=== PATIENT | female | born 1955 | race Caucasian/White ===

== ENCOUNTER 2016-10-02 13:23 | Emergency (ER) | payer OTHER ==
--- NOTE | 2016-10-02 14:12 | EDM.PDOC ---
ED HPI GENERAL MEDICAL PROBLEM - General Chief Complaint: ENT Problem Stated Complaint: NOSEBLEED Time Seen by Provider: 10/02/16 14:06 Source of Information: Reports: Patient, RN Notes Reviewed History Limitations: Reports: No Limitations - History of Present Illness INITIAL COMMENTS - FREE TEXT/NARRATIVE: 61-year-old female presents emergency department day with nose bleed thought of the left nares, she has had nosebleeds in the past last one was 2 days prior was able to get the bleeding controlled by herself this one has been worse she' s been unable to get the bleeding under control denies any lightheadedness denies taking any blood thinners - Related Data Allergies Allergy/AdvReac Type Severity Reaction Status Date / Time No Known Allergies Allergy Verified 10/02/16 13:47 Home Meds: Home Meds Venlafaxine [Effexor XR 24 Hr] 150 mg PO DAILY 09/15/13 [History] Cholecalciferol (Vitamin D3) [Vitamin D3] 3,000 unit PO DAILY 03/22/15 [History] Multivitamins,Therapeutic [Thera] 1 tab PO DAILY 03/22/15 [History] Calcium Carbonate [Calcium] 2,000 mg PO DAILY 10/02/16 [History] Cyanocobalamin (Vitamin B-12) [Vitamin B-12] 1 tab PO DAILY 10/02/16 [History] Hydrochlorothiazide [Hydrochlorothiazide] 1 tab PO DAILY 10/02/16 [History] Quinapril [Accupril] 1 tab PO DAILY 10/02/16 [History] Past Medical History HEENT History: Reports: Epistaxis, Sinusitis 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: Reports: Hypertension 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: Musculoskeletal History: Reports: Fracture Other Musculoskeletal History: both ankles Psychiatric History: Reports: Mood Swings Endocrine/Metabolic History: Reports: Obesity/BMI 30+ - Infectious Disease History Infectious Disease History: Reports: Chicken Pox, Measles, Mumps - Past Surgical History GI Surgical History: Reports: Bariatric Procedure Female Surgical History: Reports: Breast Biopsy, Section Musculoskeletal Surgical History: Reports: Other (See Below) Other Musculoskeletal Surgeries/Procedures:: ankle repair bilateral Social & Family History - Tobacco Use Smoking Status *Q: Never Smoker Used Tobacco, but Quit: No Second Hand Smoke Exposure: No - Alcohol Use Days Per Week of Alcohol Use: 0 - Recreational Drug Use Recreational Drug Use: No ED ROS ENT - Review of Systems Review Of Systems: See Below HEENT: Reports: Nosebleed Respiratory: Reports: No Symptoms Cardiovascular: Reports: No Symptoms GI/Abdominal: Reports: No Symptoms ED EXAM, ENT - Physical Exam Exam: See Below Exam Limited By: No Limitations General Appearance: Alert, WD/WN, No Apparent Distress Nose: Nasal Discharge, Active Bleeding, Dried Blood Mouth/Throat: Normal Gums, Normal Lips, Other (Bright red blood posterior pharynx) ED ENT PROCEDURES - Epistaxis Procedure Indication: Epistaxis Recent anticoagulants/antiplatlets: No Uncontrolled HTN: No Recent septal/nasal surgery: No Site of bleeding: Left Nare Clearing of clots: Patient Blew Nose Ice pack to area: No Anterior Packing: Inflatable Nasal Tampon Local Anesthetic Volume: 3cc Complications: No Course - Vital Signs Last Recorded V/S: Last Vital Signs Temp 97.3 F 10/02/16 13:47 Pulse 105 H 10/02/16 13:47 Resp 14 10/02/16 13:47 BP 175/107 H 10/02/16 13:47 Pulse Ox 95 10/02/16 13:47 Departure - Departure Time of Disposition: 15:32 Disposition: Home, Self-Care 01 Condition: Good Clinical Impression: Epistaxis - Discharge Information Forms: ED Department Discharge Additional Instructions: Please followup with your primary care provider in 2-3 days for reevaluation, please call return to the emergency department with worsening of symptoms. - Assessment/Plan Plan: Assessment Acuity = acute Site and laterality = epistaxis left naris Etiology = unclear etiology Manifestations = none Location of injury = Home Lab values = none Plan Follow-up with primary care 2-3 days for reevaluation, Rhino Rocket placed Patient was in agreement with the plan all questions were answered, they were instructed to return to the emergency department or call for worsening symptoms. This note was dictated using [employer] voice recognition software please call with any questions.
[2016-10-02 15:39] VITALS: BP 172/114
== END 2016-10-02 15:45 | disposition home or self-care (01) ==
LOC: JP.ED 13:23
DX: R04.0 Epistaxis (principal); Z79.899 Other long term (current) drug therapy; I10 Essential (primary) hypertension; F39 Unspecified mood [affective] disorder; E66.9 Obesity, unspecified
CPT/HCPCS: 30903; 99283-25

== ENCOUNTER 2016-10-02 17:26 | Emergency (ER) | payer OTHER ==
[2016-10-02 17:45] VITALS: BP 146/120
[2016-10-02] MEDS ORDERED: Oxymetazoline 0.05% Nasal Spray 15 ML Bottle NAS ONE (18:35)
--- NOTE | 2016-10-02 19:16 | EDM.PDOC ---
ED HPI GENERAL MEDICAL PROBLEM - General Chief Complaint: ENT Problem Stated Complaint: NOSE BLEED Time Seen by Provider: 10/02/16 18:26 Source of Information: Reports: Patient History Limitations: Reports: No Limitations - History of Present Illness INITIAL COMMENTS - FREE TEXT/NARRATIVE: This patient was seen earlier today for an anterior epistaxes. Dr. walshr placed a 5 similar Rhino Rocket which seemed to stop the bleeding however the patient went home and the tampon came out. She continues to bleed. Dr. walshr said he put about 3 mL of air into the Rhino Rocket and that's all she would tolerate. - Related Data Allergies Allergy/AdvReac Type Severity Reaction Status Date / Time No Known Allergies Allergy Verified 10/02/16 13:47 Home Meds: Home Meds Venlafaxine [Effexor XR 24 Hr] 150 mg PO DAILY 09/15/13 [History] Cholecalciferol (Vitamin D3) [Vitamin D3] 3,000 unit PO DAILY 03/22/15 [History] Multivitamins,Therapeutic [Thera] 1 tab PO DAILY 03/22/15 [History] Calcium Carbonate [Calcium] 2,000 mg PO DAILY 10/02/16 [History] Cyanocobalamin (Vitamin B-12) [Vitamin B-12] 1 tab PO DAILY 10/02/16 [History] Hydrochlorothiazide [Hydrochlorothiazide] 1 tab PO DAILY 10/02/16 [History] Quinapril [Accupril] 1 tab PO DAILY 10/02/16 [History] Past Medical History HEENT History: Reports: Epistaxis, Sinusitis 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: Reports: 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: Musculoskeletal History: Reports: Fracture Other Musculoskeletal History: both ankles Psychiatric History: Reports: Mood Swings Endocrine/Metabolic History: Reports: Obesity/BMI 30+ - Infectious Disease History Infectious Disease History: Reports: Chicken Pox, Measles, Mumps - Past Surgical History GI Surgical History: Reports: Bariatric Procedure Female Surgical History: Reports: Breast Biopsy, Section Musculoskeletal Surgical History: Reports: Other (See Below) Other Musculoskeletal Surgeries/Procedures:: ankle repair bilateral Social & Family History - Tobacco Use Smoking Status *Q: Never Smoker Used Tobacco, but Quit: No Second Hand Smoke Exposure: No - Alcohol Use Days Per Week of Alcohol Use: 0 - Recreational Drug Use Recreational Drug Use: No ED ROS ENT - Review of Systems Review Of Systems: ROS reveals no pertinent complaints other than HPI. ED EXAM, ENT - Physical Exam Exam: See Below Exam Limited By: No Limitations General Appearance: Alert, WD/WN, Mild Distress Nose: Active Bleeding (She has active bleeding from the left nares. 8 exam indicate is probably from the septum. See under hospital course), Other Course - Vital Signs Last Recorded V/S: Last Vital Signs Temp 97.2 C H 10/02/16 17:40 Pulse 126 H 10/02/16 17:40 Resp 16 10/02/16 17:40 BP 146/120 H 10/02/16 17:40 Pulse Ox 95 10/02/16 17:40 - Orders/Labs/Meds Meds: Medications Discontinued Medications Generic Name Dose Route Start Last Admin Trade Name Juan Pablo PRN Reason Stop Dose Admin Oxymetazoline HCl 1 ml 10/02/16 18:35 Afrin Original 0.05% Nasal Queen EVE 10/02/16 18:36 ONETIME ONE - Re-Assessments/Exams Free Text/Narrative Re-Assessment/Exam: 10/02/16 19:13 Procedure: Nasal packing, the nares were then cleared by her blowing her nose a briskly and the nose was then examined no definite bleeding points were noted however it's blood seems becoming diffusely from the the left septum. She blew her nose again and Afrin spray was used 2 sprays per each nostril and than the nose clip was placed on for several minutes. When that she was reexamined she was says was still bleeding had are clear her nose again and I was able to determine definitely that it is not a posterior bleed. Therefore I inserted a 5 cm Rhino Rocket appliance inserted to about 7 or 8 mL of air and then secured the appliance. That seemed to stop the bleeding looks like it's going to stay in Departure - Departure Time of Disposition: 19:14 Disposition: Home, Self-Care 01 Condition: Fair Clinical Impression: Acute anterior epistaxis - Discharge Information Forms: ED Department Discharge Additional Instructions: Keep the Rhino Rocket in place. If it seems like it's coming out you can use of syringe to deflated pushed a little bit more than reinflate it. He should inflated until the point where it starts to cause pain. This should be left in for 2 days and then you should see your doctor about getting it removed. You should be reexamined when it is removed. Return to ER at any time for any problems
== END 2016-10-02 19:28 | disposition home or self-care (01) ==
LOC: JP.ED 17:26
DX: R04.0 Epistaxis (principal); I10 Essential (primary) hypertension; E66.9 Obesity, unspecified; Z68.35 Body mass index [BMI] 35.0-35.9, adult; Z79.899 Other long term (current) drug therapy; Z98.890 Other specified postprocedural states; F39 Unspecified mood [affective] disorder
CPT/HCPCS: 30903; 99283; A9270

== ENCOUNTER 2017-05-02 05:28 | Inpatient (IN) | payer OTHER ==
[2017-05-02] MEDS ORDERED: Gabapentin 300 MG Cap PO ONE (05:30)
[2017-05-02] MEDS ORDERED: Acetaminophen 500 MG Tab PO ONE (05:30)
[2017-05-02] MEDS ORDERED: Scopolamine 1.5 MG Transdermal Patch TOP ONE (05:30)
[2017-05-02] MEDS ORDERED: Dextrose 5%-Lactated Ringers 1,000 ML IV SCH (06:30)
[2017-05-02] MEDS ORDERED: Isosulfan Blue 5 ML SDV ONE (06:51)
[2017-05-02] MEDS ORDERED: fentaNYL 250 MCG/5 ML SDV ONE ×2 (07:08→07:46)
[2017-05-02] MEDS ORDERED: HYDROmorphone/Normal Saline 15 MG/30 ML PCA IV PRN (07:08)
[2017-05-02] MEDS ORDERED: Naloxone 0.4 MG/ML SDV IVPUSH PRN (07:08)
[2017-05-02] MEDS ORDERED: Succinylcholine/Normal Saline 200 MG/10 ML Syringe ONE (07:11)
[2017-05-02] MEDS ORDERED: Lactated Ringers 1,000 ML ONE ×2 (07:11→08:29)
[2017-05-02] MEDS ORDERED: Neostigmine Methylsulfate 1 MG/ML 5 ML Syringe ONE (07:11)
[2017-05-02] MEDS ORDERED: Ondansetron 4 MG/2 ML SDV ONE (07:11)
[2017-05-02] MEDS ORDERED: Dexamethasone 4 MG/ML SDV ONE (07:11)
[2017-05-02] MEDS ORDERED: Propofol 200 MG/20 ML SDV ONE (07:11)
[2017-05-02] MEDS ORDERED: Rocuronium 50 MG/5 ML Vial ONE ×2 (07:11→07:45)
[2017-05-02] MEDS ORDERED: Naloxone 0.4 MG/ML SDV IV PRN (07:15)
[2017-05-02] MEDS ORDERED: cefOXitin 2 GM in Sodium Chloride 0.9% 50 ML IV ONE (07:15)
[2017-05-02] MEDS ORDERED: Lidocaine 2% 100 MG/5 ML Syringe IVPUSH ONE (07:45)
[2017-05-02] MEDS ORDERED: Ropivacaine 58 ML, Dexamethasone 8 MG, EPINEPHrine 0.4 MG, Sodium Chloride 0.9% 19.6 ML NERVRT SCH ×4 (07:45)
[2017-05-02] MEDS ORDERED: Ketamine 500 MG/5 ML MDV IV SCH (07:45)
[2017-05-02] MEDS ORDERED: Meropenem 500 MG SDV ONE (08:09)
[2017-05-02] MEDS ORDERED: Ondansetron 4 MG/2 ML SDV IVPUSH PRN (12:44)
[2017-05-02] MEDS: VERIFY SCOPOLAMINE PATCH TOP SCH (13:46)
[2017-05-02] MEDS: Dextrose 5%-Lactated Ringers 1,000 ML IV SCH (14:17)
[2017-05-02] MEDS: Lidocaine 0.4%/D5W 2 GM/500 ML BAG IV SCH (14:17)
[2017-05-02] MEDS: Pantoprazole 40 MG Vial IV SCH (14:34)
[2017-05-02] MEDS: cefOXitin 2 GM in Sodium Chloride 0.9% 50 ML IV SCH ×2 (14:34→19:57)
[2017-05-02] MEDS: Hydrochlorothiazide 12.5 MG Cap PO SCH (19:59)
[2017-05-02] MEDS: Venlafaxine 75 MG Tab PO SCH (19:59)
[2017-05-03] MEDS: Lidocaine 0.4%/D5W 2 GM/500 ML BAG IV SCH (00:17)
[2017-05-03] MEDS: cefOXitin 2 GM in Sodium Chloride 0.9% 50 ML IV SCH ×2 (01:53→08:16)
[2017-05-03] MEDS: Dextrose 5%-Lactated Ringers 1,000 ML IV SCH (04:07)
[2017-05-03] MEDS ORDERED: Dextrose 5%-Lactated Ringers 1,000 ML IV SCH ×2 (07:33→10:30)
[2017-05-03] MEDS: Venlafaxine 75 MG Tab PO SCH ×2 (08:20→20:32)
[2017-05-03] MEDS: Potassium Chloride 10% 20 MEQ/15 ML Soln 15 ML UD Cup PO SCH (08:20)
[2017-05-03] MEDS: Hydrochlorothiazide 12.5 MG Cap PO SCH ×2 (08:21→20:31)
[2017-05-03] MEDS: Bisacodyl 5 MG Tab PO SCH ×2 (08:22→20:30)
[2017-05-03] MEDS: VERIFY SCOPOLAMINE PATCH TOP SCH (08:23)
[2017-05-03] MEDS ORDERED: Iron Sucrose Complex 500 MG in Sodium Chloride 0.9% 250 ML IV ONE (10:00)
[2017-05-03] MEDS: HYDROmorphone 2 MG Tab PO PRN ×4 (10:57→22:55)
[2017-05-03] MEDS: Pantoprazole 40 MG Vial IV SCH (14:38)
--- NOTE | 2017-05-03 14:41 | PCM.SURGPN ---
- General Info Date of Service: 05/03/17 Date of Surgery/Procedure: 05/02/17 POD#: 1 Post-Op Diagnosis: Stable. S/p SILVERIO with oophorectomy, salpingectomy and sentinal lymph node excision. Admission Diagnosis/Problem: Vaginal bleeding Functional Status: Reports: Pain Controlled Pain Score: 3 - Review of Systems General: Reports: No Symptoms HEENT: Reports: No Symptoms Pulmonary: Reports: No Symptoms Cardiovascular: Reports: No Symptoms Gastrointestinal: Reports: Abdominal Pain (No flatus or BM's ) Genitourinary: Reports: No Symptoms Musculoskeletal: Reports: No Symptoms Skin: Reports: No Symptoms Neurological: Reports: No Symptoms Psychiatric: Reports: No Symptoms - Patient Data Vitals - Most Recent: Last Vital Signs Temp 36.9 C 05/03/17 10:46 Pulse 93 05/03/17 10:46 Resp 18 05/03/17 10:46 BP 118/85 05/03/17 10:46 Pulse Ox 95 05/03/17 10:46 Weight - Most Recent: 110.042 kg I&O - Last 24 Hours: Intake & Output 05/02/17 05/03/17 05/03/17 22:59 06:59 14:59 Intake Total 1238 2645 1749 Output Total 522 1152 1005 Balance 716 1493 744 Med Orders - Current: Current Medications Bisacodyl (Dulcolax) 20 mg PO BID [facility] Last Admin: 05/03/17 08:22 Dose: 20 mg Hydrochlorothiazide (Hydrochlorothiazide) 12.5 mg PO BID [facility] Last Admin: 05/03/17 08:21 Dose: 12.5 mg Hydromorphone HCl (Dilaudid) 2 - 4 mg PO Q4H PRN PRN Reason: Pain Last Admin: 05/03/17 10:57 Dose: 4 mg Iron Sucrose 500 mg/ Sodium (Chloride) 275 mls @ 68 mls/hr IV ONETIME ONE Stop: 05/04/17 14:02 Dextrose/Lactated Ringer's (Dextrose 5%-Lactated Ringers) 1,000 mls @ 0 mls/hr IV ASDIRECTED [facility] PRN Reason: KVO Miscellaneous Information (Remove Patch) 1 ea TRDERM ONETIME ONE Stop: 05/04/17 09:01 Naloxone HCl (Narcan) 0.1 mg IV ASDIRECTED PRN PRN Reason: decreased respiratory rate Ondansetron HCl (Zofran) 4 mg IVPUSH Q4H PRN PRN Reason: Nausea Pantoprazole Sodium (Protonix Iv) 40 mg IV Q24H [facility] Last Admin: 05/02/17 14:34 Dose: 40 mg Potassium Chloride (Potassium Chloride Solution) 20 meq PO DAILY@0800 [facility] Last Admin: 05/03/17 08:20 Dose: 20 meq Quinapril HCl (Accupril) 10 mg PO DAILY [facility] Last Admin: 05/03/17 08:22 Dose: 10 mg Senna/Docusate Sodium (Senna Plus) 2 tab PO DAILY [facility] Last Admin: 05/03/17 08:22 Dose: 2 tab Venlafaxine HCl (Effexor) 75 mg PO BID [facility] Last Admin: 05/03/17 08:20 Dose: 75 mg Discontinued Medications Acetaminophen (Tylenol Extra Strength) 1,000 mg PO ONETIME ONE Stop: 05/02/17 05:31 Last Admin: 05/02/17 05:58 Dose: 1,000 mg Ropivacaine 58 ml/Dexamethasone 8 mg/Epinephrine HCl 0.4 mg/ Sodium Chloride 19.6 ml 0 ml NERVRT ASDIRECTED [facility] Last Admin: 05/02/17 08:29 Dose: 80 syringe Dexamethasone (Dexamethasone) Confirm Administered Dose 4 mg .ROUTE .STK-MED ONE Stop: 05/02/17 07:12 Fentanyl (Sublimaze) Confirm Administered Dose 250 mcg .ROUTE .STK-MED ONE Stop: 05/02/17 07:09 Fentanyl (Sublimaze) Confirm Administered Dose 250 mcg .ROUTE .STK-MED ONE Stop: 05/02/17 07:47 Gabapentin (Neurontin) 300 mg PO ONETIME ONE Stop: 05/02/17 05:31 Last Admin: 05/02/17 05:58 Dose: 300 mg Glycopyrrolate () Confirm Administered Dose 1 mg .ROUTE .STK-MED ONE Stop: 05/02/17 07:12 Hydromorphone HCl (Dilaudid Bag Patcher 15 Mg In Ns 30 Ml) 0 mg IV ASDIRECTED PRN; Protocol PRN Reason: Pain Last Admin: 05/02/17 10:26 Dose: 0.3 mg Lidocaine HCl/Dextrose (Lidocaine 2 Gm/D5w 500 Ml) 2 gm in 500 mls @ 30 mls/hr IV .[id number] [facility] PRN Reason: 2 MG/MIN Stop: 05/03/17 11:00 Last Admin: 05/03/17 00:17 Dose: 2 mg/min, 30 mls/hr Ketamine HCl 100 mg/ Sodium (Chloride) 100 mls @ 20.7 mls/hr IV ASDIRECTED [facility] PRN Reason: 5 MCG/KG/MIN Dextrose/Lactated Ringer's (Dextrose 5%-Lactated Ringers) 1,000 mls @ 100 mls/ hr IV ASDIRECTED [facility] Last Admin: 05/02/17 06:01 Dose: 100 mls/hr Cefoxitin Sodium 2 gm/ Sodium (Chloride) 50 mls @ 100 mls/hr IV ONETIME ONE Stop: 05/02/17 07:44 Last Admin: 05/02/17 07:17 Dose: 100 mls/hr Lactated Ringer's (Ringers, Lactated) Confirm Administered Dose 1,000 mls @ as directed .ROUTE .ST-MED ONE Stop: 05/02/17 07:12 Lactated Ringer's (Ringers, Lactated) Confirm Administered Dose 1,000 mls @ as directed .ROUTE .STK-MED ONE Stop: 05/02/17 08:30 Dextrose/Lactated Ringer's (Dextrose 5%-Lactated Ringers) 1,000 mls @ 175 mls/ hr IV ASDIRECTED [facility] Last Admin: 05/03/17 04:07 Dose: 175 mls/hr Cefoxitin Sodium 2 gm/ Sodium (Chloride) 50 mls @ 100 mls/hr IV Q6H [facility] Stop: 05/03/17 08:29 Last Admin: 05/03/17 08:16 Dose: 100 mls/hr Dextrose/Lactated Ringer's (Dextrose 5%-Lactated Ringers) 1,000 mls @ 100 mls/ hr IV ASDIRECTED [facility] Iron Sucrose 500 mg/ Sodium (Chloride) 275 mls @ 68 mls/hr IV ONETIME ONE Stop: 05/03/17 14:02 Last Admin: 05/03/17 10:48 Dose: 68 mls/hr Isosulfan Blue (Lymphazurin 1%) Confirm Administered Dose 5 ml .ROUTE .STK-MED ONE Stop: 05/02/17 06:52 Last Admin: 05/02/17 08:24 Dose: 5 ml Ketamine HCl (Ketalar) 35 mg IV ASDIRECTED [facility] Lidocaine HCl (Xylocaine 2%) 130 mg IVPUSH ONETIME ONE Stop: 05/02/17 07:46 Last Admin: 05/02/17 13:46 Dose: Not Given Meropenem (Merrem) Confirm Administered Dose 500 mg .ROUTE .STK-MED ONE Stop: 05/02/17 08:10 Last Admin: 05/02/17 08:24 Dose: 500 mg Neostigmine Methylsulfate (Neostigmine) Confirm Administered Dose 5 mg .ROUTE .STK-MED ONE Stop: 05/02/17 07:12 Verify Scopolamine (Patch) 0 each TOP DAILY [facility] Stop: 05/03/17 09:01 Last Admin: 05/03/17 08:23 Dose: Not Given Ondansetron HCl (Zofran) Confirm Administered Dose 4 mg .ROUTE .STK-MED ONE Stop: 05/02/17 07:12 Propofol (Diprivan 20 Ml) Confirm Administered Dose 200 mg .ROUTE .STK-MED ONE Stop: 05/02/17 07:12 Rocuronium [place] (Zemuron) Confirm Administered Dose 50 mg .ROUTE .STK-MED ONE Stop: 05/02/17 07:12 Rocuronium [place] (Zemuron) Confirm Administered Dose 50 mg .ROUTE .STK-MED ONE Stop: 05/02/17 07:46 Scopolamine (Transderm-Scop) 1.5 mg TOP ONETIME ONE Stop: 05/02/17 05:31 Last Admin: 05/02/17 05:58 Dose: 1.5 mg Succinylcholine Chloride (Succinylcholine In Ns Pf) Confirm Administered Dose 200 mg .ROUTE .STK-MED ONE Stop: 05/02/17 07:12 - Exam Wound/Incisions: Healing Well General: Alert, Oriented Lungs: Clear to Auscultation, Normal Respiratory Effort Cardiovascular: Regular Rate, Regular Rhythm GI/Abdominal Exam: Normal Bowel Sounds, Soft, No Organomegaly, No Distention, No Abnormal Bruit, No Mass, Pelvis Stable, Tender Neurological: No New Focal Deficit Psy/Mental Status: Alert, Normal Affect, Normal Mood - Problem List Review Problem List Initiated/Reviewed/Updated: Yes - My Orders Last 24 Hours: Active Orders 24 hr Category Date Time Status Communication Order [RC] ROUTINE Care 05/03/17 07:38 Active May Shower [RC] ASDIRECTED Care 05/03/17 07:38 Active Full Liquid Diet [DIET] Diet 05/03/17 Breakfast Ordered Regular Diet [DIET] Diet 05/03/17 Lunch Active Bisacodyl [Dulcolax] Med 05/03/17 09:00 Active 20 mg PO BID Dextrose 5%-Lactated Ringers 1,000 ml Med 05/03/17 10:30 Active IV ASDIRECTED Docusate Sodium/Sennosides [Senna Plus] Med 05/03/17 09:00 Active 2 tab PO DAILY HYDROmorphone [Dilaudid] Med 05/03/17 10:26 Active 2 - 4 mg PO Q4H PRN Hydrochlorothiazide Med 05/02/17 21:00 Active 12.5 mg PO BID Iron Sucrose Complex [Venofer] 500 mg Med 05/04/17 10:00 Active Sodium Chloride 0.9% [Normal Saline] 250 ml IV ONETIME Pantoprazole [ProTONIX IV] Med 05/02/17 14:00 Active 40 mg IV Q24H Potassium Chloride [Potassium Chloride Solution] Med 05/03/17 08:00 Active 20 meq PO DAILY@0800 Quinapril [Accupril] Med 05/03/17 09:00 Active 10 mg PO DAILY Remove Patch Med 05/04/17 09:00 Once 1 ea TRDERM ONETIME ONE Venlafaxine [Effexor] Med 05/02/17 21:00 Active 75 mg PO BID Medication Orders Bisacodyl (Dulcolax) 20 mg PO BID [facility] Last Admin: 05/03/17 08:22 Dose: 20 mg Hydrochlorothiazide (Hydrochlorothiazide) 12.5 mg PO BID [facility] Last Admin: 05/03/17 08:21 Dose: 12.5 mg Admin: 05/02/17 19:59 Dose: 12.5 mg Hydromorphone HCl (Dilaudid) 2 - 4 mg PO Q4H PRN PRN Reason: Pain Last Admin: 05/03/17 10:57 Dose: 4 mg Iron Sucrose 500 mg/ Sodium (Chloride) 275 mls @ 68 mls/hr IV ONETIME ONE Stop: 05/04/17 14:02 Dextrose/Lactated Ringer's (Dextrose 5%-Lactated Ringers) 1,000 mls @ 0 mls/hr IV ASDIRECTED [facility] PRN Reason: KVO Miscellaneous Information (Remove Patch) 1 ea [facility] ONETIME ONE Stop: 05/04/17 09:01 Naloxone HCl (Narcan) 0.1 mg IV ASDIRECTED PRN PRN Reason: decreased respiratory rate Ondansetron HCl (Zofran) 4 mg IVPUSH Q4H PRN PRN Reason: Nausea Pantoprazole Sodium (Protonix Iv) 40 mg IV Q24H [facility] Last Admin: 05/02/17 14:34 Dose: 40 mg Potassium Chloride (Potassium Chloride Solution) 20 meq PO DAILY@0800 [facility] Last Admin: 05/03/17 08:20 Dose: 20 meq Quinapril HCl (Accupril) 10 mg PO DAILY [facility] Last Admin: 05/03/17 08:22 Dose: 10 mg Senna/Docusate Sodium (Senna Plus) 2 tab PO DAILY [facility] Last Admin: 05/03/17 08:22 Dose: 2 tab Venlafaxine HCl (Effexor) 75 mg PO BID [facility] Last Admin: 05/03/17 08:20 Dose: 75 mg Admin: 05/02/17 19:59 Dose: Not Given - Plan Plan (Free Text/Narrative):: Keiko Porter is a 61 year old female with a past surgical history significant for bariatric surgery who is here for POD #1 of Exploratory laparotomy with total abdominal hysterectomy, oophorectomy, salipingectomy and sentinel lymph node excision. The patient is still having some abdominal tenderness related to the surgery as well as some ileus as she has not passed gas or had a bowel movement. She is no longer having vaginal bleeding. # Abdominal pain- this is related to her surgery. 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 She was advised to continue to walk around the wards for improvement and informed that this issue typically resolves but that it just takes time. - Senna plus as tolerated - Continue full liquid diet and advance to full diet as tolerable Chronic Issues: # Hypertension- The patient has been hypertensive here in the hospital. This is a chronic issue for her. Though, some could be related to her pain. She does vary during the day. Her highest was 160/100. But is normaling between 140-150's /80's-90's. - Continue home regimen of Hydrochlorthiazide, KCL and Accupril - Will continue to monitor # Iron deficiency anemia - Venofer 500 mg infusions # Depression - Continue home dose effexor IVF: 25ml/hr VTE prophylaxis: SCD's and advised to walk around Code: Full Diet: full liquid advancing to full Cardiac: Continual Tele Dispo: The patient will most likely be here for the weekend. Discharge goals are PO medications and passing gas or stool. Will continue to monitor progress
[2017-05-03] MEDS: Acetaminophen 160 MG Tab,Disintegrating PO PRN ×2 (16:42→20:51)
[2017-05-04] MEDS: Acetaminophen 160 MG Tab,Disintegrating PO PRN ×2 (01:42→07:24)
[2017-05-04] MEDS: HYDROmorphone 2 MG Tab PO PRN ×4 (05:15→21:02)
--- NOTE | 2017-05-04 07:34 | PCM.SURGPN ---
- General Info Date of Service: 05/04/17 Date of Surgery/Procedure: 05/02/17 POD#: 2 Functional Status: Reports: Pain Controlled, Tolerating Diet, Ambulating, Urinating, Incentive Spirometry Pain Score: 3 - Review of Systems General: Reports: No Symptoms Pulmonary: Reports: No Symptoms Cardiovascular: Reports: No Symptoms Gastrointestinal: Reports: Abdominal Pain Genitourinary: Reports: No Symptoms Musculoskeletal: Reports: Other (bilateral torso pain) Neurological: Reports: No Symptoms - Patient Data Vitals - Most Recent: Last Vital Signs Temp 36.9 C 05/04/17 01:47 Pulse 76 05/04/17 01:47 Resp 18 05/04/17 01:47 BP 149/86 H 05/04/17 01:47 Pulse Ox 93 L 05/04/17 01:47 Weight - Most Recent: 110.042 kg I&O - Last 24 Hours: Intake & Output 05/03/17 05/04/17 05/04/17 22:59 06:59 14:59 Intake Total 1800 Output Total 930 2660 Balance 870 -2660 Lab Results Last 24 Hrs: Laboratory Results - last 24 hr 05/02/17 Range/Units 05:50 CA 125 Antigen 6 (0-38) U/mL Med Orders - Current: Current Medications Acetaminophen (Tylenol Jr. Meltaways) 640 mg PO Q4H PRN PRN Reason: Pain Last Admin: 05/04/17 01:42 Dose: 640 mg Bisacodyl (Dulcolax) 20 mg PO BID [facility] Last Admin: 05/03/17 20:30 Dose: 20 mg Hydrochlorothiazide (Hydrochlorothiazide) 12.5 mg PO BID [facility] Last Admin: 05/03/17 20:31 Dose: 12.5 mg Hydromorphone HCl (Dilaudid) 2 - 4 mg PO Q4H PRN PRN Reason: Pain Last Admin: 05/04/17 05:15 Dose: 4 mg Iron Sucrose 500 mg/ Sodium (Chloride) 275 mls @ 68 mls/hr IV ONETIME ONE Stop: 05/04/17 14:02 Miscellaneous Information (Remove Patch) 1 ea TRDERM ONETIME ONE Stop: 05/04/17 09:01 Naloxone HCl (Narcan) 0.1 mg IV ASDIRECTED PRN PRN Reason: decreased respiratory rate Ondansetron HCl (Zofran) 4 mg IVPUSH Q4H PRN PRN Reason: Nausea Pantoprazole Sodium (Protonix Iv) 40 mg IV Q24H [facility] Last Admin: 05/03/17 14:38 Dose: 40 mg Potassium Chloride (Potassium Chloride Solution) 20 meq PO DAILY@0800 [facility] Last Admin: 05/03/17 08:20 Dose: 20 meq Quinapril HCl (Accupril) 10 mg PO DAILY [facility] Last Admin: 05/03/17 08:22 Dose: 10 mg Senna/Docusate Sodium (Senna Plus) 2 tab PO DAILY [facility] Last Admin: 05/03/17 08:22 Dose: 2 tab Venlafaxine HCl (Effexor) 75 mg PO BID [facility] Last Admin: 05/03/17 20:32 Dose: 75 mg Discontinued Medications Acetaminophen (Tylenol Extra Strength) 1,000 mg PO ONETIME ONE Stop: 05/02/17 05:31 Last Admin: 05/02/17 05:58 Dose: 1,000 mg Ropivacaine 58 ml/Dexamethasone 8 mg/Epinephrine HCl 0.4 mg/ Sodium Chloride 19.6 ml 0 ml NERVRT ASDIRECTED [facility] Last Admin: 05/02/17 08:29 Dose: 80 syringe Dexamethasone (Dexamethasone) Confirm Administered Dose 4 mg .ROUTE .STK-MED ONE Stop: 05/02/17 07:12 Fentanyl (Sublimaze) Confirm Administered Dose 250 mcg .ROUTE .STK-MED ONE Stop: 05/02/17 07:09 Fentanyl (Sublimaze) Confirm Administered Dose 250 mcg .ROUTE .STK-MED ONE Stop: 05/02/17 07:47 Gabapentin (Neurontin) 300 mg PO ONETIME ONE Stop: 05/02/17 05:31 Last Admin: 05/02/17 05:58 Dose: 300 mg Glycopyrrolate () Confirm Administered Dose 1 mg .ROUTE .STK-MED ONE Stop: 05/02/17 07:12 Hydromorphone HCl (Dilaudid Product Assurance Engineer 15 Mg In Ns 30 Ml) 0 mg IV ASDIRECTED PRN; Protocol PRN Reason: Pain Last Admin: 05/02/17 10:26 Dose: 0.3 mg Lidocaine HCl/Dextrose (Lidocaine 2 Gm/D5w 500 Ml) 2 gm in 500 mls @ 30 mls/hr IV .[id number] [facility] PRN Reason: 2 MG/MIN Stop: 05/03/17 11:00 Last Admin: 05/03/17 00:17 Dose: 2 mg/min, 30 mls/hr Ketamine HCl 100 mg/ Sodium (Chloride) 100 mls @ 20.7 mls/hr IV ASDIRECTED [facility] PRN Reason: 5 MCG/KG/MIN Dextrose/Lactated Ringer's (Dextrose 5%-Lactated Ringers) 1,000 mls @ 100 mls/ hr IV ASDIRECTED [facility] Last Admin: 05/02/17 06:01 Dose: 100 mls/hr Cefoxitin Sodium 2 gm/ Sodium (Chloride) 50 mls @ 100 mls/hr IV ONETIME ONE Stop: 05/02/17 07:44 Last Admin: 05/02/17 07:17 Dose: 100 mls/hr Lactated Ringer's (Ringers, Lactated) Confirm Administered Dose 1,000 mls @ as directed .ROUTE .STK-MED ONE Stop: 05/02/17 07:12 Lactated Ringer's (Ringers, Lactated) Confirm Administered Dose 1,000 mls @ as directed .ROUTE .STK-MED ONE Stop: 05/02/17 08:30 Dextrose/Lactated Ringer's (Dextrose 5%-Lactated Ringers) 1,000 mls @ 175 mls/ hr IV ASDIRECTED [facility] Last Admin: 05/03/17 04:07 Dose: 175 mls/hr Cefoxitin Sodium 2 gm/ Sodium (Chloride) 50 mls @ 100 mls/hr IV Q6H [facility] Stop: 05/03/17 08:29 Last Admin: 05/03/17 08:16 Dose: 100 mls/hr Dextrose/Lactated Ringer's (Dextrose 5%-Lactated Ringers) 1,000 mls @ 100 mls/ hr IV ASDIRECTED [facility] Iron Sucrose 500 mg/ Sodium (Chloride) 275 mls @ 68 mls/hr IV ONETIME ONE Stop: 05/03/17 14:02 Last Admin: 05/03/17 10:48 Dose: 68 mls/hr Dextrose/Lactated Ringer's (Dextrose 5%-Lactated Ringers) 1,000 mls @ 0 mls/hr IV ASDIRECTED [facility] PRN Reason: KVO Last Admin: 05/03/17 14:37 Dose: 25 mls/hr Isosulfan Blue (Lymphazurin 1%) Confirm Administered Dose 5 ml .ROUTE .STK-MED ONE Stop: 05/02/17 06:52 Last Admin: 05/02/17 08:24 Dose: 5 ml Ketamine HCl (Ketalar) 35 mg IV ASDIRECTED [facility] Lidocaine HCl (Xylocaine 2%) 130 mg IVPUSH ONETIME ONE Stop: 05/02/17 07:46 Last Admin: 05/02/17 13:46 Dose: Not Given Meropenem (Merrem) Confirm Administered Dose 500 mg .ROUTE .STK-MED ONE Stop: 05/02/17 08:10 Last Admin: 05/02/17 08:24 Dose: 500 mg Neostigmine Methylsulfate (Neostigmine) Confirm Administered Dose 5 mg .ROUTE .STK-MED ONE Stop: 05/02/17 07:12 Verify Scopolamine (Patch) 0 each TOP DAILY [facility] Stop: 05/03/17 09:01 Last Admin: 05/03/17 08:23 Dose: Not Given Ondansetron HCl (Zofran) Confirm Administered Dose 4 mg .ROUTE .STK-MED ONE Stop: 05/02/17 07:12 Propofol (Diprivan 20 Ml) Confirm Administered Dose 200 mg .ROUTE .STK-MED ONE Stop: 05/02/17 07:12 Rocuronium [place] (Zemuron) Confirm Administered Dose 50 mg .ROUTE .STK-MED ONE Stop: 05/02/17 07:12 Rocuronium [place] (Zemuron) Confirm Administered Dose 50 mg .ROUTE .STK-MED ONE Stop: 05/02/17 07:46 Scopolamine (Transderm-Scop) 1.5 mg TOP ONETIME ONE Stop: 05/02/17 05:31 Last Admin: 05/02/17 05:58 Dose: 1.5 mg Succinylcholine Chloride (Succinylcholine In Ns Pf) Confirm Administered Dose 200 mg .ROUTE .STK-MED ONE Stop: 05/02/17 07:12 - Exam Wound/Incisions: Healing Well General: Alert, Oriented Lungs: Clear to Auscultation, Normal Respiratory Effort Cardiovascular: Regular Rate, Regular Rhythm GI/Abdominal Exam: Tender, Other (very few bowel sounds heard) Skin: Warm, Dry, Intact Neurological: Normal Gait, Normal Speech, Normal Tone Psy/Mental Status: Alert, Normal Affect, Normal Mood - Problem List Review Problem List Initiated/Reviewed/Updated: Yes - My Orders Last 24 Hours: Active Orders 24 hr Category Date Time Status Communication Order [RC] ROUTINE Care 05/03/17 07:38 Active May Shower [RC] ASDIRECTED Care 05/03/17 07:38 Active Full Liquid Diet [DIET] Diet 05/03/17 Breakfast Ordered Regular Diet [DIET] Diet 05/03/17 Lunch Active Acetaminophen [Tylenol Jr. Meltaways] Med 05/03/17 14:48 Active 640 mg PO Q4H PRN Bisacodyl [Dulcolax] Med 05/03/17 09:00 Active 20 mg PO BID Docusate Sodium/Sennosides [Senna Plus] Med 05/03/17 09:00 Active 2 tab PO DAILY HYDROmorphone [Dilaudid] Med 05/03/17 10:26 Active 2 - 4 mg PO Q4H PRN Iron Sucrose Complex [Venofer] 500 mg Med 05/04/17 10:00 Active Sodium Chloride 0.9% [Normal Saline] 250 ml IV ONETIME Potassium Chloride [Potassium Chloride Solution] Med 05/03/17 08:00 Active 20 meq PO DAILY@0800 Quinapril [Accupril] Med 05/03/17 09:00 Active 10 mg PO DAILY Remove Patch Med 05/04/17 09:00 Once 1 ea TRDERM ONETIME ONE Medication Orders Acetaminophen (Tylenol Jr. Meltaways) 640 mg PO Q4H PRN PRN Reason: Pain Last Admin: 05/04/17 01:42 Dose: 640 mg Admin: 05/03/17 20:51 Dose: 640 mg Admin: 05/03/17 16:42 Dose: 640 mg Bisacodyl (Dulcolax) 20 mg PO BID [facility] Last Admin: 05/03/17 20:30 Dose: 20 mg Admin: 05/03/17 08:22 Dose: 20 mg Hydrochlorothiazide (Hydrochlorothiazide) 12.5 mg PO BID [facility] Last Admin: 05/03/17 20:31 Dose: 12.5 mg Admin: 05/03/17 08:21 Dose: 12.5 mg Admin: 05/02/17 19:59 Dose: 12.5 mg Hydromorphone HCl (Dilaudid) 2 - 4 mg PO Q4H PRN PRN Reason: Pain Last Admin: 05/04/17 05:15 Dose: 4 mg Admin: 05/03/17 22:55 Dose: 4 mg Admin: 05/03/17 18:54 Dose: 4 mg Admin: 05/03/17 14:47 Dose: 4 mg Admin: 05/03/17 10:57 Dose: 4 mg Iron Sucrose 500 mg/ Sodium (Chloride) 275 mls @ 68 mls/hr IV ONETIME ONE Stop: 05/04/17 14:02 Miscellaneous Information (Remove Patch) 1 ea TRDERM ONETIME ONE Stop: 05/04/17 09:01 Naloxone HCl (Narcan) 0.1 mg IV ASDIRECTED PRN PRN Reason: decreased respiratory rate Ondansetron HCl (Zofran) 4 mg IVPUSH Q4H PRN PRN Reason: Nausea Pantoprazole Sodium (Protonix Iv) 40 mg IV Q24H [facility] Last Admin: 05/03/17 14:38 Dose: 40 mg Admin: 05/02/17 14:34 Dose: 40 mg Potassium Chloride (Potassium Chloride Solution) 20 meq PO DAILY@0800 [facility] Last Admin: 05/03/17 08:20 Dose: 20 meq Quinapril HCl (Accupril) 10 mg PO DAILY [facility] Last Admin: 05/03/17 08:22 Dose: 10 mg Senna/Docusate Sodium (Senna Plus) 2 tab PO DAILY [facility] Last Admin: 05/03/17 08:22 Dose: 2 tab Venlafaxine HCl (Effexor) 75 mg PO BID [facility] Last Admin: 05/03/17 20:32 Dose: 75 mg Admin: 05/03/17 08:20 Dose: 75 mg Admin: 05/02/17 19:59 Dose: Not Given - Plan Plan (Free Text/Narrative):: Keiko Porter is a 61 year old female with a past surgical history significant for bariatric surgery who is here for POD #2 of exploratory laparotomy with total abdominal hysterectomy, oophorectomy, salipingectomy and sentinel lymph node excision. The patient is still having some abdominal tenderness as well as bilateral torso tenderness related to the surgery, as well as some ileus. She is no longer having vaginal bleeding. # Abdominal pain- this is related to her surgery. 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 She was advised to continue to walk around the wards for improvement and informed that this issue typically resolves but that it just takes time. She is currently POD #2 as there should be some movement today. Few bowel sounds were heard, which is optimistic. The patient was advised to try small amounts of soft foods to help get that bowel moving. - Senna plus as tolerated - Continue full liquid diet and advance to full diet as tolerable Chronic Issues: # Hypertension- The patient has been hypertensive here in the hospital. This is a chronic issue for her. Though, some could be related to her pain. She does vary during the day. Her highest was 160/100. But is normaling between 140-150's /80's-90's. - Continue home regimen of Hydrochlorthiazide, KCL and Accupril - Will continue to monitor # Iron deficiency anemia - Venofer 500 mg infusions # Depression - Continue home dose effexor IVF: 25ml/hr VTE prophylaxis: SCD's and advised to walk around Code: Full Diet: full liquid advancing to full Dispo: The patient will most likely be here until tomorrow. Discharge goals are PO medications and passing gas or stool. Will continue to monitor progress
[2017-05-04] MEDS ORDERED: Cyclobenzaprine 10 MG Tab PO PRN (07:39)
[2017-05-04] MEDS: Bisacodyl 5 MG Tab PO SCH ×2 (08:24→20:36)
[2017-05-04] MEDS: Potassium Chloride 10% 20 MEQ/15 ML Soln 15 ML UD Cup PO SCH (08:24)
[2017-05-04] MEDS: Hydrochlorothiazide 12.5 MG Cap PO SCH ×2 (08:25→20:36)
[2017-05-04] MEDS: Venlafaxine 75 MG Tab PO SCH ×2 (08:25→20:36)
[2017-05-04] MEDS ORDERED: Iron Sucrose Complex 500 MG in Sodium Chloride 0.9% 250 ML IV ONE (10:00)
[2017-05-04] MEDS: Pantoprazole 40 MG Tab.CR PO SCH (11:19)
[2017-05-04] MEDS ORDERED: Magnesium Citrate Solution 296 ML Bottle PO ONE (12:00)
[2017-05-05] MEDS: HYDROmorphone 2 MG Tab PO PRN ×2 (05:02→09:02)
--- NOTE | 2017-05-05 07:34 | PCM.SURGPN ---
- General Info Date of Service: 05/05/17 Date of Surgery/Procedure: 05/02/17 POD#: 3 Post-Op Diagnosis: S/p SILVERIO, oophrectomy, salpingectomy and sentinel lymph node biopsy Admission Diagnosis/Problem: Vaginal bleeding Functional Status: Reports: Pain Controlled - Review of Systems General: Reports: No Symptoms HEENT: Reports: No Symptoms Pulmonary: Reports: No Symptoms Cardiovascular: Reports: No Symptoms Gastrointestinal: Reports: No Symptoms Genitourinary: Reports: No Symptoms Musculoskeletal: Reports: Other (bilateral torso pain ) Skin: Reports: No Symptoms Neurological: Reports: No Symptoms Psychiatric: Reports: No Symptoms - Patient Data Vitals - Most Recent: Last Vital Signs Temp 36.1 C 05/05/17 03:00 Pulse 98 05/05/17 03:00 Resp 16 05/04/17 23:01 BP 115/67 05/04/17 23:01 Pulse Ox 96 05/04/17 23:01 Weight - Most Recent: 110.042 kg I&O - Last 24 Hours: Intake & Output 05/04/17 05/05/17 05/05/17 22:59 06:59 14:59 Intake Total 1000 1500 Balance 1000 1500 Med Orders - Current: Current Medications Acetaminophen (Tylenol JrKelsey Sepulveda) 640 mg PO Q4H PRN PRN Reason: Pain Last Admin: 05/04/17 07:24 Dose: 640 mg Bisacodyl (Dulcolax) 20 mg PO BID [facility] Last Admin: 05/04/17 20:36 Dose: Not Given Cyclobenzaprine HCl (Flexeril) 10 mg PO Q6H PRN PRN Reason: muscle spasms Last Admin: 05/04/17 11:19 Dose: 10 mg Hydrochlorothiazide (Hydrochlorothiazide) 12.5 mg PO BID [facility] Last Admin: 05/04/17 20:36 Dose: 12.5 mg Hydromorphone HCl (Dilaudid) 2 - 4 mg PO Q4H PRN PRN Reason: Pain Last Admin: 05/05/17 05:02 Dose: 4 mg Naloxone HCl (Narcan) 0.1 mg IV ASDIRECTED PRN PRN Reason: decreased respiratory rate Ondansetron HCl (Zofran) 4 mg IVPUSH Q4H PRN PRN Reason: Nausea Pantoprazole Sodium (Protonix) 40 mg PO ACBREAKFAST [facility] Last Admin: 05/04/17 11:19 Dose: 40 mg Potassium Chloride (Potassium Chloride Solution) 20 meq PO DAILY@0800 [facility] Last Admin: 05/04/17 08:24 Dose: 20 meq Quinapril HCl (Accupril) 10 mg PO DAILY [facility] Last Admin: 05/04/17 08:24 Dose: 10 mg Senna/Docusate Sodium (Senna Plus) 2 tab PO DAILY [facility] Last Admin: 05/04/17 08:25 Dose: 2 tab Venlafaxine HCl (Effexor) 75 mg PO BID [facility] Last Admin: 05/04/17 20:36 Dose: 75 mg Discontinued Medications Acetaminophen (Tylenol Extra Strength) 1,000 mg PO ONETIME ONE Stop: 05/02/17 05:31 Last Admin: 05/02/17 05:58 Dose: 1,000 mg Ropivacaine 58 ml/Dexamethasone 8 mg/Epinephrine HCl 0.4 mg/ Sodium Chloride 19.6 ml 0 ml NERVRT ASDIRECTED [facility] Last Admin: 05/02/17 08:29 Dose: 80 syringe Dexamethasone (Dexamethasone) Confirm Administered Dose 4 mg .ROUTE .STK-MED ONE Stop: 05/02/17 07:12 Fentanyl (Sublimaze) Confirm Administered Dose 250 mcg .ROUTE .STK-MED ONE Stop: 05/02/17 07:09 Fentanyl (Sublimaze) Confirm Administered Dose 250 mcg .ROUTE .STK-MED ONE Stop: 05/02/17 07:47 Gabapentin (Neurontin) 300 mg PO ONETIME ONE Stop: 05/02/17 05:31 Last Admin: 05/02/17 05:58 Dose: 300 mg Glycopyrrolate () Confirm Administered Dose 1 mg .ROUTE .STK-MED ONE Stop: 05/02/17 07:12 Hydromorphone HCl (Dilaudid Manager Recruitment 15 Mg In Ns 30 Ml) 0 mg IV ASDIRECTED PRN; Protocol PRN Reason: Pain Last Admin: 05/02/17 10:26 Dose: 0.3 mg Lidocaine HCl/Dextrose (Lidocaine 2 Gm/D5w 500 Ml) 2 gm in 500 mls @ 30 mls/hr IV .[id number] [facility] PRN Reason: 2 MG/MIN Stop: 05/03/17 11:00 Last Admin: 05/03/17 00:17 Dose: 2 mg/min, 30 mls/hr Ketamine HCl 100 mg/ Sodium (Chloride) 100 mls @ 20.7 mls/hr IV ASDIRECTED [facility] PRN Reason: 5 MCG/KG/MIN Dextrose/Lactated Ringer's (Dextrose 5%-Lactated Ringers) 1,000 mls @ 100 mls/ hr IV ASDIRECTED [facility] Last Admin: 05/02/17 06:01 Dose: 100 mls/hr Cefoxitin Sodium 2 gm/ Sodium (Chloride) 50 mls @ 100 mls/hr IV ONETIME ONE Stop: 05/02/17 07:44 Last Admin: 05/02/17 07:17 Dose: 100 mls/hr Lactated Ringer's (Ringers, Lactated) Confirm Administered Dose 1,000 mls @ as directed .ROUTE .[facility] ONE Stop: 05/02/17 07:12 Lactated Ringer's (Ringers, Lactated) Confirm Administered Dose 1,000 mls @ as directed .ROUTE .[facility] ONE Stop: 05/02/17 08:30 Dextrose/Lactated Ringer's (Dextrose 5%-Lactated Ringers) 1,000 mls @ 175 mls/ hr IV ASDIRECTED [facility] Last Admin: 05/03/17 04:07 Dose: 175 mls/hr Cefoxitin Sodium 2 gm/ Sodium (Chloride) 50 mls @ 100 mls/hr IV Q6H [facility] Stop: 05/03/17 08:29 Last Admin: 05/03/17 08:16 Dose: 100 mls/hr Dextrose/Lactated Ringer's (Dextrose 5%-Lactated Ringers) 1,000 mls @ 100 mls/ hr IV ASDIRECTED [facility] Iron Sucrose 500 mg/ Sodium (Chloride) 275 mls @ 68 mls/hr IV ONETIME ONE Stop: 05/03/17 14:02 Last Admin: 05/03/17 10:48 Dose: 68 mls/hr Iron Sucrose 500 mg/ Sodium (Chloride) 275 mls @ 68 mls/hr IV ONETIME ONE Stop: 05/04/17 14:02 Last Admin: 05/04/17 10:10 Dose: 68 mls/hr Dextrose/Lactated Ringer's (Dextrose 5%-Lactated Ringers) 1,000 mls @ 0 mls/hr IV ASDIRECTED [facility] PRN Reason: KVO Last Admin: 05/03/17 14:37 Dose: 25 mls/hr Isosulfan Blue (Lymphazurin 1%) Confirm Administered Dose 5 ml .ROUTE .STK-MED ONE Stop: 05/02/17 06:52 Last Admin: 05/02/17 08:24 Dose: 5 ml Ketamine HCl (Ketalar) 35 mg IV ASDIRECTED [facility] Lidocaine HCl (Xylocaine 2%) 130 mg IVPUSH ONETIME ONE Stop: 05/02/17 07:46 Last Admin: 05/02/17 13:46 Dose: Not Given Magnesium Citrate (Citrate Of Magnesia) 296 ml PO ONETIME ONE Stop: 05/04/17 12:01 Last Admin: 05/04/17 12:56 Dose: 296 ml Meropenem (Merrem) Confirm Administered Dose 500 mg .ROUTE .STK-MED ONE Stop: 05/02/17 08:10 Last Admin: 05/02/17 08:24 Dose: 500 mg Miscellaneous Information (Remove Patch) 1 ea TRDERM ONETIME ONE Stop: 05/04/17 09:01 Last Admin: 05/04/17 08:26 Dose: Not Given Neostigmine Methylsulfate (Neostigmine) Confirm Administered Dose 5 mg .ROUTE .STK-MED ONE Stop: 05/02/17 07:12 Verify Scopolamine (Patch) 0 each TOP DAILY [facility] Stop: 05/03/17 09:01 Last Admin: 05/03/17 08:23 Dose: Not Given Ondansetron HCl (Zofran) Confirm Administered Dose 4 mg .ROUTE .STK-MED ONE Stop: 05/02/17 07:12 Pantoprazole Sodium (Protonix Iv) 40 mg IV Q24H [facility] Last Admin: 05/03/17 14:38 Dose: 40 mg Propofol (Diprivan 20 Ml) Confirm Administered Dose 200 mg .ROUTE .STK-MED ONE Stop: 05/02/17 07:12 Rocuronium [place] (Zemuron) Confirm Administered Dose 50 mg .ROUTE .STK-MED ONE Stop: 05/02/17 07:12 Rocuronium [place] (Zemuron) Confirm Administered Dose 50 mg .ROUTE .STK-MED ONE Stop: 05/02/17 07:46 Scopolamine (Transderm-Scop) 1.5 mg TOP ONETIME ONE Stop: 02/08/18 05:31 Last Admin: 05/02/17 05:58 Dose: 1.5 mg Succinylcholine Chloride (Succinylcholine In Ns Pf) Confirm Administered Dose 200 mg .ROUTE .STK-MED ONE Stop: 05/02/17 07:12 - Exam Wound/Incisions: Healing Well General: Alert, Oriented Lungs: Clear to Auscultation, Normal Respiratory Effort Cardiovascular: Regular Rate, Regular Rhythm GI/Abdominal Exam: Normal Bowel Sounds, Soft, Non-Tender, No Organomegaly, No Distention, No Abnormal Bruit, No Mass, Pelvis Stable Skin: Warm, Dry, Intact Neurological: No New Focal Deficit Psy/Mental Status: Alert, Normal Affect, Normal Mood - Problem List Review Problem List Initiated/Reviewed/Updated: Yes - My Orders Last 24 Hours: Active Orders 24 hr Category Date Time Status Cyclobenzaprine [Flexeril] Med 05/04/17 07:39 Active 10 mg PO Q6H PRN Pantoprazole [ProTONIX] Med 05/04/17 11:30 Active 40 mg PO ACBREAKFAST Medication Orders Acetaminophen (Tylenol Jr. Meltaways) 640 mg PO Q4H PRN PRN Reason: Pain Last Admin: 05/04/17 07:24 Dose: 640 mg Admin: 05/04/17 01:42 Dose: 640 mg Admin: 05/03/17 20:51 Dose: 640 mg Admin: 05/03/17 16:42 Dose: 640 mg Bisacodyl (Dulcolax) 20 mg PO BID [facility] Last Admin: 05/04/17 20:36 Dose: Admin: 05/04/17 08:24 Dose: 20 mg Admin: 05/03/17 20:30 Dose: 20 mg Admin: 05/03/17 08:22 Dose: 20 mg Cyclobenzaprine HCl (Flexeril) 10 mg PO Q6H PRN PRN Reason: muscle spasms Last Admin: 05/04/17 11:19 Dose: 10 mg Hydrochlorothiazide (Hydrochlorothiazide) 12.5 mg PO BID [facility] Last Admin: 05/04/17 20:36 Dose: 12.5 mg Admin: 05/04/17 08:25 Dose: 12.5 mg Admin: 05/03/17 20:31 Dose: 12.5 mg Admin: 05/03/17 08:21 Dose: 12.5 mg Admin: 05/02/17 19:59 Dose: 12.5 mg Hydromorphone HCl (Dilaudid) 2 - 4 mg PO Q4H PRN PRN Reason: Pain Last Admin: 05/05/17 05:02 Dose: 4 mg Admin: 05/04/17 21:02 Dose: 4 mg Admin: 05/04/17 14:36 Dose: 4 mg Admin: 05/04/17 09:52 Dose: 4 mg Admin: 05/04/17 05:15 Dose: 4 mg Admin: 05/03/17 22:55 Dose: 4 mg Admin: 05/03/17 18:54 Dose: 4 mg Admin: 05/03/17 14:47 Dose: 4 mg Admin: 05/03/17 10:57 Dose: 4 mg Naloxone HCl (Narcan) 0.1 mg IV ASDIRECTED PRN PRN Reason: decreased respiratory rate Ondansetron HCl (Zofran) 4 mg IVPUSH Q4H PRN PRN Reason: Nausea Pantoprazole Sodium (Protonix) 40 mg PO ACBREAKFAST [facility] Last Admin: 05/04/17 11:19 Dose: 40 mg Potassium Chloride (Potassium Chloride Solution) 20 meq PO DAILY@0800 [facility] Last Admin: 05/04/17 08:24 Dose: 20 meq Admin: 05/03/17 08:20 Dose: 20 meq Quinapril HCl (Accupril) 10 mg PO DAILY [facility] Last Admin: 05/04/17 08:24 Dose: 10 mg Admin: 05/03/17 08:22 Dose: 10 mg Senna/Docusate Sodium (Senna Plus) 2 tab PO DAILY [facility] Last Admin: 05/04/17 08:25 Dose: 2 tab Admin: 05/03/17 08:22 Dose: 2 tab Venlafaxine HCl (Effexor) 75 mg PO BID [facility] Last Admin: 05/04/17 20:36 Dose: 75 mg Admin: 05/04/17 08:25 Dose: 75 mg Admin: 05/03/17 20:32 Dose: 75 mg Admin: 05/03/17 08:20 Dose: 75 mg Admin: 05/02/17 19:59 Dose: Not Given - Plan Plan (Free Text/Narrative):: Keiko Porter is a 61 year old female with a past surgical history significant for bariatric surgery who is here for POD # 3 of exploratory laparotomy with total abdominal hysterectomy, oophorectomy, salipingectomy and sentinel lymph node excision. The patient is still having some abdominal tenderness as well as bilateral torso tenderness related to the surgery. She is no longer having vaginal bleeding. She had two Bm/s yesterday. # Abdominal pain- this is related to her surgery. - Oral pain medications, hydromophone Q4hr and Tylenol Q6hr PRN - Continue full diet as tolerated - The patient may shower - Remove JACE number two - Leave midline JACE drain until f/u - F/u in clinic on Saturday05/10/17 # Paralytic ileus- Resolved. After some mag citrate the patient did have two bowel movements yesterday and is not passing gas. - Continue full liquid diet and advance to full diet as tolerable Chronic Issues: # Hypertension- The patient has been hypertensive here in the hospital. This is a chronic issue for her. Though, some could be related to her pain. She does vary during the day. Her highest was 160/100. But is normaling between 140-150's /80's-90's. - Continue home regimen of Hydrochlorthiazide, KCL and Accupril # Depression - Continue home dose effexor Dispo: Discharge to home with F/u this Saturday05/10/17. Patient advised to return with any fever, intolerable pain, significant wound discharge and nausea/ vomiting or for any other concerns.
[2017-05-05 08:01] VITALS: BP 134/74
[2017-05-05] MEDS: Potassium Chloride 10% 20 MEQ/15 ML Soln 15 ML UD Cup PO SCH (08:28)
[2017-05-05] MEDS: Pantoprazole 40 MG Tab.CR PO SCH (08:28)
[2017-05-05] MEDS: Venlafaxine 75 MG Tab PO SCH (08:29)
[2017-05-05] MEDS: Bisacodyl 5 MG Tab PO SCH (08:29)
[2017-05-05] MEDS: Hydrochlorothiazide 12.5 MG Cap PO SCH (08:29)
--- NOTE | 2017-05-06 18:13 | DISCH ---
FINAL DIAGNOSES: 1. Persistent postmenopausal bleeding associated with thickened endometrial stripe. 2. Iron deficiency status. SECONDARY DIAGNOSES: 1. Bariatric surgery status. 2. History of type 2 diabetes mellitus, resolved status post gastric bypass. 3. Incisional hernia. 4. History of hypertension. 5. History of depression. OPERATIVE PROCEDURE: This was done on the date of admission, exploratory laparotomy with: 1. Total abdominal hysterectomy with bilateral salpingo-oophorectomy with pelvic lymph node sampling. 2. Injection procedure for identification of sentinel lymph nodes. 3. Repair of incarcerated incisional hernia. HOSPITAL COURSE: This is a 61-year-old female presenting with persistent postmenopausal vaginal bleeding with a thickened endometrial stripe. After preop evaluation and discussion, she wished to proceed with a total abdominal hysterectomy with bilateral salpingo-oophorectomy with pelvic lymph node sampling. An adequate procedure for endometrial carcinoma will be planned in the event that the final pathology shows such a state. The patient also had an incarcerated incisional hernia at the upper end of the previous lower midline incision repaired concurrently. Postoperatively, she has had no major problems. She did have ferritin level quite low preoperatively at 22 and given this, received one dose of Venofer 500 mg postoperatively. She presently is satisfactorily moving her bowels. She will be planned to be discharged home. Follow up with Margarita Ashby PA-C, at [facility] this 05/10/2017. The inside JACE drain will be removed and the midline drain and the incision will be left in place, and should be continued on present home medications plus Dilaudid 2 to 4 mg q.4 hours p.r.n. pain, #50, Tylenol 650 mg p.o. q.4 hours p.r.n. pain in addition to or instead of Dilaudid as needed, and Senna Plus 2 tablets p.o. daily, #60, refill x1 year.
--- NOTE | 2017-05-07 08:02 | OR ---
DATE OF PROCEDURE: 05/02/2017 PREOPERATIVE DIAGNOSIS: Persistent postmenopausal bleeding associated with thickened endometrial stripe. POSTOPERATIVE DIAGNOSIS: 1. Persistent postmenopausal bleeding associated with thickened endometrial stripe. 2. Incarcerated incisional hernia. OPERATIVE PROCEDURES: Exploratory laparotomy with: 1. Total abdominal hysterectomy with bilateral salpingo-oophorectomy and pelvic lymph node sampling (78004). 2. Injection procedure for identification of sentinel lymph nodes (74508). 3. Repair of incarcerated incisional hernia (56470). 4. Mobilization of omentum to displace small bowel from pelvic and abdominal bar in the event of postoperative radiation treatment (90334). ANESTHESIA: General. MARINE EQUIPMENT RESEARCH ENGINEER: 1. Margarita Ashby PA-C. 2. VANDANA Palumbo3. INDICATION FOR PROCEDURE: This is a 61-year-old female presenting with some persistent postmenopausal bleeding, and now she has developed significant iron deficiency. She has thickened endometrial stripe, and the plan is to proceed with exploratory laparotomy and a total abdominal hysterectomy and bilateral salpingo-oophorectomy. The procedure will be fashioned such that, in the event that endometrial carcinoma is identified postoperatively, a satisfactory procedure from an oncological standpoint would have been performed. Potential risks including bleeding, infection, injury to underlying viscera and/or urinary tract, potential recurrence of any tumor that might be present, as well as possibility of cardiopulmonary, septic, or hemorrhagic complications leading to were discussed, and the patient wishes to proceed. DETAILS OF PROCEDURE: The patient was taken to the operating room and after general endotracheal anesthesia was induced, a Brunson catheter was inserted, and a vaginal and abdominal prep were performed. Lower midline incision was made and carried down through the skin and subcutaneous tissue. At the upper end of the previous lower midline incision, the patient was noted to have an incarcerated incisional hernia in the periumbilical area. The hernia sac at this level was excised, and that, along with some incarcerated omentum, were sent as surgical specimen. At that point, the peritoneal washings were obtained with irrigation of saline into the lower abdomen and pelvis, and general exploration was undertaken. The patient was noted to have a mildly enlarged uterus. There was no gross evidence of neoplastic disease within the pelvis and abdomen in general, and there was no nodularity or suggestion of problematic findings in the uterine tubes and ovaries. At this point, to prevent migration of any potential endometrial neoplasia from the uterus into the adnexal areas, suture was placed with 0-Vicryl stitch around the uterine tube roughly 2-3 cm from the edge of the uterus. At that point, 2 mL of Isosulfan blue dye was injected around the base of the cervix bilaterally using a spinal needle to facilitate identification of sentinel lymph nodes and lymphatics. At this point, the uterus was mobilized upward. The peritoneal reflection of the bladder out of the uterus was initially dissected down to the level of the uppermost vagina, and then on each side, the infundibulopelvic, broad, and round ligaments were divided sequentially with ALAN felipa. At that point, further resection on the base of the uterus was accomplished, and the uterine arteries were taken bilaterally with ALAN blue loads. At that point, the uterosacral ligaments were clamped, divided, and suture-ligated with #1 Vicryl stitch. The vagina was then divided roughly a centimeter below the junction of the cervix circumferentially with electrocautery and that specimen delivered from the field. The vaginal cuff was then closed with a continuation of the uterosacral ligament sutures and united in the midline. The uterus was examined by the pathologist and did not report any findings suggestive of malignancy. At this point, the peritoneum over the common iliac and over the junction of the external and internal iliac vessels was divided on the left side. The fatty and lymphatic tissue in that area was then excised using combination of blunt and cautery dissection with careful identification of the ureter. It was notable that there were no obvious lymph nodes in this area, but the area did have some staining of the tissues with the blue dye, and there was no blue dye identified proximal to roughly the junction of the external and internal iliac vessels. Attention was taken to the right side, and a similar dissection was undertaken. There was well-defined lymph node here in this area that had some blue dye within it, and again, apart from that, there was quite a bit in the way of fatty tissue, but no obvious lymph nodes. The complex of the fatty tissue and lymph node was then sent for permanent section. At this point, no further problems were noted. The abdomen was irrigated with meropenem- containing saline solution. Tom-Bella drain was placed through a stab wound in the right mid abdomen and taken down into the depths of the pelvis. In the event that the patient at some point might need postoperative radiotherapy, the omentum was then brought down into the depths of the pelvis, sutured to the pelvic wall with 3-0 Vicryl stitch, and following this, the midline fascia was approximated with #2 Vicryl stitch, after initial layer of the peritoneum was closed from the linea semilunaris downward, both areas with #2 Vicryl stitch, and the bladder layer included repair of the incisional hernia. The skin and subcutaneous tissues were fairly thick and a 10-Polish Tom-Bella drain was placed through a stab wound superior to the main incision and over this then, 2 layers of 3-0 Vicryl stitch were placed, one in the subcutaneous tissue, one in the subdermal layer, and felipa placed for the skin. Drains were sutured to the skin with 3-0 Vicryl stitch and the patient was taken to the recovery room in satisfactory condition. There were no evident complications. Physician assistant infant toddler teacher, Margarita Ashby PA-C, played an essential role in assisting in this case, helping to position the patient, retract structures as needed, as well as suturing and cutting sutures and stapling when indicated. Her presence improved the patient's safety and decreased operative time. Justin Obregon MD /[id number]
== END 2017-05-05 10:23 | disposition home or self-care (01) | DRG 742 ==
LOC: JP.MS 05:28 → JP.SDS 05:28 → EDSTATUS 07:30 → JP.MS 10:15 → JP.2SS 05-03 09:19
PROVIDERS: ADMIT Surgery; ATTEND Surgery
PROC: 0UT90ZZ Resection of Uterus, Open Approach (ICD-10-PCS; principal; 2017-05-02)
PROC: 0UT20ZZ Resection of Bilateral Ovaries, Open Approach (ICD-10-PCS; 2017-05-02)
PROC: 0UT70ZZ Resection of Bilateral Fallopian Tubes, Open Approach (ICD-10-PCS; 2017-05-02)
PROC: 0WQF0ZZ Repair Abdominal Wall, Open Approach (ICD-10-PCS; 2017-05-02)
PROC: 07BJ0ZX Excision of Left Inguinal Lymphatic, Open Approach, Diagnostic (ICD-10-PCS; 2017-05-02)
PROC: 07BH0ZX Excision of Right Inguinal Lymphatic, Open Approach, Diagnostic (ICD-10-PCS; 2017-05-02)
PROC: 3E1M38X Irrigation of Peritoneal Cavity using Irrigating Substance, Percutaneous Approach, Diagnostic (ICD-10-PCS; 2017-05-02)
DX: N95.0 Postmenopausal bleeding (principal); K43.0 Incisional hernia with obstruction, without gangrene; R93.8 Abnormal findings on diagnostic imaging of other specified body structures; I10 Essential (primary) hypertension; Z85.828 Personal history of other malignant neoplasm of skin; F32.9 Major depressive disorder, single episode, unspecified; Z98.84 Bariatric surgery status; Z86.39 Personal history of other endocrine, nutritional and metabolic disease; D53.0 Protein deficiency anemia
CPT/HCPCS: 36415; 83036; 86304; 88112; 88302; 88305; 88307; 88331; A9270-GY; C9113; J0171; J0694; J1100; J1170; J1756; J2001; J2185; J2405; J2704; J2795; J3010; J7030; J7042; J7050; J7120; Q9968

== ENCOUNTER 2017-05-07 10:59 | Day surgery (SDC) | payer OTHER ==
[2017-05-07] MEDS ORDERED: Lactated Ringers 1,000 ML IV SCH (11:00)
[2017-05-07] MEDS ORDERED: fentaNYL 250 MCG/5 ML SDV ONE (13:29)
[2017-05-07] MEDS ORDERED: Dexamethasone 4 MG/ML SDV ONE (13:33)
[2017-05-07] MEDS ORDERED: Propofol 200 MG/20 ML SDV ONE (13:33)
[2017-05-07] MEDS ORDERED: Succinylcholine/Normal Saline 200 MG/10 ML Syringe ONE (13:33)
[2017-05-07] MEDS ORDERED: Neostigmine Methylsulfate 1 MG/ML 5 ML Syringe ONE (13:33)
[2017-05-07] MEDS ORDERED: Rocuronium 50 MG/5 ML Vial ONE (13:33)
[2017-05-07] MEDS ORDERED: Ondansetron 4 MG/2 ML SDV ONE (13:33)
[2017-05-07] MEDS ORDERED: Meropenem 500 MG in Sodium Chloride 0.9% 50 ML IV ONE (13:45)
[2017-05-07] MEDS ORDERED: Lactated Ringers 1,000 ML ONE (14:11)
[2017-05-07] MEDS ORDERED: Hydrogen Peroxide 3% Top Soln 240 ML Bottle ONE (14:18)
[2017-05-07] MEDS ORDERED: Dextrose 5%-Lactated Ringers 1,000 ML IV SCH (15:00)
[2017-05-07 15:55] VITALS: BP 140/77
--- NOTE | 2017-05-15 08:28 | OR ---
DATE OF PROCEDURE: 05/07/2017 PREOPERATIVE DIAGNOSIS: Post-hysterectomy vaginal bleeding. POSTOPERATIVE DIAGNOSIS: Post-hysterectomy vaginal bleeding. PROCEDURE: Vaginal exam under anesthesia with sutures of the vaginal cuff closure line (52072). ANESTHESIA: General. DRIVER: Amador Baez MS-3. INDICATION FOR PROCEDURE: The patient is recently status post total abdominal hysterectomy and presented at the time of clinic visit today with new onset of fairly heavy vaginal bleeding. Our plan is to proceed with a pelvic exam under anesthesia with control of the bleeding as indicated. Potential risks of the procedure, including bleeding, infection, remote possibility that we might need to proceed with a laparotomy were gone over, possible injury to the structures in the vicinity were reviewed, and the patient wishes to proceed. DESCRIPTION OF PROCEDURE: The patient was taken to the operating room, and after general endotracheal anesthesia was induced, the patient was placed in the lithotomy position. Vaginal prep was performed. Speculum examination at this time showed no active bleeding. There was some clot along the left side of the vaginal cuff closure line, although this was not definitively the location where the bleeding had been coming from. There was no other pathology seen in the vaginal mucosa, so the bleeding would likely have been from somewhere along that vaginal cuff closure line. Given this, the entire vaginal cuff closure line was then closed with a series of [id number] sutures of 0 Vicryl stitch. Once this was completed, no additional problems were noted. A Brunson catheter was briefly placed into the bladder, and no packing was placed. The patient was taken to the recovery room in satisfactory condition. Justin Obregon MD /[id number]
== END 2017-05-07 16:16 | disposition home or self-care (01) ==
LOC: JP.SDS 10:59
PROVIDERS: ATTEND Surgery
DX: N99.820 Postprocedural hemorrhage of a genitourinary system organ or structure following a genitourinary system procedure (principal); I10 Essential (primary) hypertension; F32.9 Major depressive disorder, single episode, unspecified; E66.9 Obesity, unspecified; Z98.84 Bariatric surgery status; Z90.710 Acquired absence of both cervix and uterus
CPT/HCPCS: 36415; 57200; 85027; 86850; 86900; 86901; 86920; 86922; A9270; J1100; J2185; J2405; J2704; J3010; J7050; J7120

== ENCOUNTER 2023-01-16 06:24 | Inpatient (IN) | payer BC ==
[2023-01-16] MEDS ORDERED: Bupivacaine 0.5% 50 ML MDV ONE (06:53)
[2023-01-16 06:55] LABS: BASOPHILS ABSOLUTE AUTO 0.06 K/uL (0.00-0.10); EOSINOPHILS ABSOLUTE AUTO 0.21 K/uL (0.00-0.40); EOSINOPHILS PERCENT AUTO 3.5 % (0.0-5.4); HEMATOCRIT 45.6 % (34.3-46.0); HEMOGLOBIN 15.3 g/dL (11.2-15.5); IMMATURE GRAN PERCENT AUTO 0.2 % (0.0-0.7); LYMPHOCYTES ABSOLUTE AUTO 2.37 K/uL (0.8-3.3); LYMPHOCYTES PERCENT AUTO 39.7 % (11.4-47.7); MEAN CORPUSCULAR HEMOGLOBIN 33.3 pg (31.6-35.5); MEAN CORPUSCULAR HGB CONC 33.6 g/dL (31.6-35.5); MEAN CORPUSCULAR VOLUME 99.3 fL (81.4-99.0); MONOCYTES ABSOLUTE AUTO 0.51 K/uL (0.20-0.90); MONOCYTES PERCENT AUTO 8.5 % (3.3-12.6); NEUTROPHILS ABSOLUTE AUTO 2.81 K/uL (1.0-7.6); NEUTROPHILS PERCENT AUTO 47.1 % (40.0-78.1); PLATELET COUNT,PLT 315 K/uL (130-375); RED BLOOD CELL COUNT 4.59 M/uL (3.77-5.24)
[2023-01-16 06:56] LABS: IMMATURE GRAN ABSOLUTE AUTO 0.01 K/uL (0.00-0.23)
[2023-01-16] MEDS ORDERED: Nozin Nasal Sanitizer NASBOTH ONE (07:00)
[2023-01-16] MEDS ORDERED: Lactated Ringers 1,000 ML IV SCH (07:00)
[2023-01-16 07:16] LABS: A/G RATIO 0.9 (1.2-2.2); ALANINE AMINOTRANSFERASE,ALT 12 U/L (12-78); ALBUMIN 3.6 g/dL (3.4-5.0); ALKALINE PHOSPHATASE 97 U/L (46-116); ASPARTATE AMNIOTRANSFERASE,AST 17 U/L (15-37); BILIRUBIN TOTAL 0.7 mg/dL (0.2-1.0); BLOOD UREA NITROGEN,BUN 16 mg/dL (7-18); CALCIUM 8.8 mg/dL (8.5-10.1); CARBON DIOXIDE,CO2 31 mmol/L (21-32); CHLORIDE,CL 99 mmol/L (100-108); CREATININE 0.8 mg/dL (0.6-1.0); EST CRCL DRUG DOSING (CG) 78.36 mL/min; ESTIMATED GFR 82 mL/min (>60); GLUCOSE RANDOM 111 mg/dL (74-106); POTASSIUM,K 3.4 mmol/L (3.6-5.2); PROTEIN TOTAL,TP 7.6 g/dL (6.4-8.2); SODIUM,NA 136 mmol/L (140-148)
[2023-01-16 07:17] LABS: ANION GAP 9.4 mmol/L (5.0-14.0)
[2023-01-16] MEDS ORDERED: Midazolam 1 MG/ML 2 ML SDV ONE ×3 (07:36→10:13)
[2023-01-16] MEDS ORDERED: fentaNYL 100 MCG/2 ML SDV ONE (07:36)
[2023-01-16] MEDS ORDERED: Propofol 200 MG/20 ML SDV ONE ×3 (07:36→10:06)
[2023-01-16] MEDS ORDERED: oxyCODONE 5 MG Tab PO PRN ×2 (08:00→16:30)
[2023-01-16] MEDS ORDERED: Docusate Sodium 100 MG Cap PO PRN (08:01)
[2023-01-16] MEDS ORDERED: Magnesium Hydroxide 400 MG/5 ML Susp 30 ML Cup PO PRN (08:01)
[2023-01-16] MEDS ORDERED: Ondansetron 4 MG/2 ML SDV IVPUSH PRN (08:01)
[2023-01-16] MEDS ORDERED: Morphine 2 MG/ML SYRINGE IVPUSH PRN ×2 (08:01→16:29)
[2023-01-16] MEDS ORDERED: Ketorolac 30 MG/ML SDV IVPUSH PRN (08:01)
[2023-01-16] MEDS ORDERED: ceFAZolin 2 GM in Premix Bag 1 BAG IV ONE (08:15)
[2023-01-16] MEDS ORDERED: Tranexamic Acid 1,000 MG in Sodium Chloride 0.9% 50 ML IV ONE (08:30)
[2023-01-16] MEDS ORDERED: ePHEDrine 50 MG/ML SDV ONE (09:33)
[2023-01-16] MEDS ORDERED: Lactated Ringers 1,000 ML ONE (10:15)
[2023-01-16] MEDS ORDERED: Hydrochlorothiazide 25 MG Tab PO SCH (12:00)
[2023-01-16] MEDS ORDERED: Lisinopril 20 MG Tab PO SCH (12:00)
[2023-01-16] MEDS: oxyCODONE 5 MG Tab PO PRN ×4 (12:04→22:04)
[2023-01-16] MEDS: Sodium Chloride 0.9% 1,000 ML IV SCH ×2 (12:08→20:35)
[2023-01-16] MEDS: Acetaminophen 325 MG Tab PO SCH ×3 (13:01→23:25)
[2023-01-16] MEDS: Fluticasone NASAL Spray 16 GM Bottle NASBOTH SCH ×2 (13:02→20:41)
[2023-01-16] MEDS: Potassium Chloride 20 MEQ Tab.ER PO SCH (13:02)
[2023-01-16] MEDS: ceFAZolin 2 GM in Premix Bag 1 BAG IV SCH ×2 (15:26→23:26)
[2023-01-16] MEDS: Calcium Carbonate 500 MG Tab.Chew PO SCH ×2 (15:26→20:41)
[2023-01-16] MEDS ORDERED: Ketorolac 30 MG/ML SDV IVPUSH SCH (16:30)
[2023-01-16] MEDS: Ketorolac 15 MG/ML SDV IVPUSH SCH (20:05)
[2023-01-16] MEDS: Nozin Nasal Sanitizer NASBOTH SCH (20:38)
[2023-01-16] MEDS: Sennosides 8.6 MG Tab PO SCH (20:41)
[2023-01-17] MEDS: oxyCODONE 5 MG Tab PO PRN ×4 (01:56→20:01)
[2023-01-17] MEDS: Ketorolac 15 MG/ML SDV IVPUSH SCH ×3 (03:51→20:01)
[2023-01-17] MEDS: Sodium Chloride 0.9% 1,000 ML IV SCH ×2 (05:26→14:03)
[2023-01-17] MEDS: Acetaminophen 325 MG Tab PO SCH ×4 (05:27→23:26)
[2023-01-17] MEDS: ceFAZolin 2 GM in Premix Bag 1 BAG IV SCH (08:21)
[2023-01-17] MEDS: Potassium Chloride 20 MEQ Tab.ER PO SCH (08:26)
[2023-01-17] MEDS: Aspirin 325 MG Tab.EC PO SCH ×2 (08:29→20:03)
[2023-01-17] MEDS: Fluticasone NASAL Spray 16 GM Bottle NASBOTH SCH ×2 (08:34→20:03)
[2023-01-17] MEDS: Nozin Nasal Sanitizer NASBOTH SCH ×2 (08:35→20:02)
[2023-01-17] MEDS: Hydrochlorothiazide 25 MG Tab PO SCH (08:37)
[2023-01-17] MEDS: Lisinopril 20 MG Tab PO SCH (08:39)
[2023-01-17] MEDS: Multivitamins with Iron/Calcium/Folic Acid/Minerals Tab PO SCH (08:42)
[2023-01-17] MEDS: Calcium Carbonate 500 MG Tab.Chew PO SCH ×3 (08:43→20:03)
[2023-01-17] MEDS: Vitamin B Complex Tab PO SCH (08:43)
[2023-01-17] MEDS: Cyanocobalamin (Vitamin B12) 1,000 MCG Tab PO SCH (08:44)
[2023-01-17] MEDS: Cholecalciferol (Vitamin D3) 25 MCG Tab PO SCH (08:45)
[2023-01-17] MEDS: FLUoxetine 20 MG Cap PO SCH (08:53)
[2023-01-17] MEDS: Sennosides 8.6 MG Tab PO SCH ×2 (11:22→20:03)
[2023-01-18] MEDS: oxyCODONE 5 MG Tab PO PRN ×2 (01:01→11:13)
[2023-01-18] MEDS: Ketorolac 15 MG/ML SDV IVPUSH SCH ×2 (03:55→13:30)
[2023-01-18] MEDS: Acetaminophen 325 MG Tab PO SCH ×2 (06:17→13:31)
[2023-01-18 06:19] VITALS: BP 116/68; PULSE 85
[2023-01-18] MEDS: Nozin Nasal Sanitizer NASBOTH SCH (09:44)
[2023-01-18] MEDS: Potassium Chloride 20 MEQ Tab.ER PO SCH (09:45)
[2023-01-18] MEDS: Cholecalciferol (Vitamin D3) 25 MCG Tab PO SCH (09:45)
[2023-01-18] MEDS: Cyanocobalamin (Vitamin B12) 1,000 MCG Tab PO SCH (09:45)
[2023-01-18] MEDS: Calcium Carbonate 500 MG Tab.Chew PO SCH ×2 (09:45→13:31)
[2023-01-18] MEDS: Fluticasone NASAL Spray 16 GM Bottle NASBOTH SCH (09:46)
[2023-01-18] MEDS: Aspirin 325 MG Tab.EC PO SCH (09:46)
[2023-01-18] MEDS: Hydrochlorothiazide 25 MG Tab PO SCH (09:46)
[2023-01-18] MEDS: Lisinopril 20 MG Tab PO SCH (09:47)
[2023-01-18] MEDS: Sennosides 8.6 MG Tab PO SCH (09:48)
[2023-01-18] MEDS: FLUoxetine 20 MG Cap PO SCH (09:48)
[2023-01-18] MEDS: Multivitamins with Iron/Calcium/Folic Acid/Minerals Tab PO SCH (09:48)
[2023-01-18] MEDS: Vitamin B Complex Tab PO SCH (09:48)
== END 2023-01-18 14:40 | disposition home or self-care (01) | DRG 302 ==
LOC: JP.SDS 06:24 → JP.MS 08:01 → JP.SDS 01-17 17:00 → JP.MS 01-17 17:02
PROVIDERS: ADMIT Specialist; ATTEND Specialist
PROC: 0SRC069 Replacement of Right Knee Joint with Oxidized Zirconium on Polyethylene Synthetic Substitute, Cemented, Open Approach (ICD-10-PCS; principal; 2023-01-16 08:15)
DX: M17.11 Unilateral primary osteoarthritis, right knee (principal); F32.A Depression, unspecified; E66.9 Obesity, unspecified; I10 Essential (primary) hypertension; R73.01 Impaired fasting glucose; Z90.710 Acquired absence of both cervix and uterus; Z98.84 Bariatric surgery status; Z79.82 Long term (current) use of aspirin; Z79.899 Other long term (current) drug therapy; Z98.890 Other specified postprocedural states; Z82.49 Family history of ischemic heart disease and other diseases of the circulatory system; Z68.39 Body mass index [BMI] 39.0-39.9, adult
CPT/HCPCS: 36415; 73560-26-RT; 73560-RT; 80053; 85025; 97110-GP; 97116-GP; 97161-GP; 97165-GO; 97530-GP; 97535-GO; A9270-GY; C1713; C1776; J0690; J1885; J2250; J2270; J2405; J2704; J3010; J3490; J7030; J7120